=== PATIENT | male | born 1965 | race Caucasian/White ===

== ENCOUNTER 2023-08-07 00:50 | Emergency (ER) | payer BC, SELFPAY ==
[2023-08-07 00:53] VITALS: BP 164/94
[2023-08-07 01:14] VITALS: BMI 31.3
--- NOTE | 2023-08-07 01:16 | ED.GENMED ---
History of Present Illness
<SERGE Slater - Last Filed: 08/07/23 02:32>
General
Chief Complaint: Skin Surface Trauma
Source: patient
Time Seen by Provider: 08/07/23 01:04
Travel History
Have you had any contact with someone who has COVID-19?: No
Do you have any symptoms of coronavirus? Fever > 100 degrees, chills, cough, shortness of breath, sore throat, loss of taste or smell, muscle aches, or headache?: No
History of Present Illness
History of Present Illness:
58 year old male with hx of HTN who presents with laceration to R 3rd digit that occurred 1 hour [employer]. Pt was at work when he cut himself with the cerated blade of a tape gun. Site with bleeding initially. He reports minimal pain to the area. Pt
works with oil and his hands are soiled. He has not taken anything for pain. He is not on any blood thinners. Tetanus not UTD.
Past History
<SERGE Slater - Last Filed: 08/07/23 02:32>
Past History
ED Past Medical History: None
ED Past Surgical History: None
Social History
Tobacco: Non-smoker
Personal: Single
Living: alone
Employment: Employed
Review of Systems
<SERGE Slater - Last Filed: 08/07/23 02:32>
Review of Systems
Allergies reviewed?: Yes
All Other Systems: ROS reviewed and negative except as documented in HPI and ROS
Constitutional: Reports no symptoms
EENT: Reports no symptoms
Respiratory: Reports no symptoms
Cardiac: Reports no symptoms
ABD/GI: Reports no symptoms
: Reports no symptoms
Musculoskeletal: Reports no symptoms
Skin: Reports other (laceration to R 3rd digit)
Neurological: Reports no symptoms
Endocrine: Reports no symptoms
Hematologic/Lymphatic: Reports bleeding
Psychiatric: Reports no symptoms
Phy Exam
<SERGE Slater - Last Filed: 08/07/23 02:32>
General Physical Exam
General Presentation: well appearing and no apparent distress
General age: appears stated age
General Skin: warm and dry
General Habitus: normal
General Mental: alert
Cardiovascular Exam
Cardiovascular Exam: regular rate/rhythm, no edema, no gallop, no murmur and normal peripheral pulses
Pulmonary Exam
Pulmonary Exam: lungs clear, no respiratory distress, no rales, no crackles, no rhonchi, no wheezing and no cough
Neurological Exam
Neurological Exam: alert, oriented x3, no motor deficits and no sensory deficits
Musculoskeletal Exam
Musculoskeletal Exam: full ROM (of R 3rd digit) and neuro vasc intact (R 3rd digit with good capillary refill and neurovascularly intact)
Skin Exam
Skin Exam: laceration (2.5 cm U-shaped laceration to the dorsal aspect of R 3rd digit along the PIP joint, laceration flaps open, no foreign body, site with minimal active bleeding. Hand is dirty.)
Psychiatric Exam
Psychiatric Exam: normal mood/affect
Course
<SERGE Slater - Last Filed: 08/07/23 02:32>
Orders/Labs/Results
Orders:
Orders
08/07/23 01:28
Tetanus/Diphth/Acelpertussis [Adacel] 0.5 ml IM .ONCE ONE
08/07/23 01:35
Cephalexin Monohydrate [Keflex] 500 mg PO NOW STA
Vital Signs
Initial and Last Documented VS:
Initial Vital Signs
Temp Pulse Resp BP Pulse Ox
98.4 F 82 16 164/94 99
08/07/23 00:53 08/07/23 00:53 08/07/23 00:53 08/07/23 00:53 08/07/23 00:53
Last Documented Vital Signs
Temp Pulse Resp BP Pulse Ox
98.4 F 82 16 164/94 99
08/07/23 00:53 08/07/23 00:53 08/07/23 00:53 08/07/23 00:53 08/07/23 00:53
<Azalia Alonso DO - Last Filed: 08/07/23 02:05>
Orders/Labs/Results
Orders:
Orders
08/07/23 01:28
Tetanus/Diphth/Acelpertussis [Adacel] 0.5 ml IM .ONCE ONE
08/07/23 01:35
Cephalexin Monohydrate [Keflex] 500 mg PO NOW STA
Vital Signs
Initial and Last Documented VS:
Initial Vital Signs
Temp Pulse Resp BP Pulse Ox
98.4 F 82 16 164/94 99
08/07/23 00:53 08/07/23 00:53 08/07/23 00:53 08/07/23 00:53 08/07/23 00:53
Last Documented Vital Signs
Temp Pulse Resp BP Pulse Ox
98.4 F 82 16 164/94 99
08/07/23 00:53 08/07/23 00:53 08/07/23 00:53 08/07/23 00:53 08/07/23 00:53
Procedures
<SERGE Slater - Last Filed: 08/07/23 02:32>
Laceration Closure
Right Dorsal Third Finger:
Status of Wound: dirty
Size of Wound in cm: 2.5 (U-shaped)
Description of Wound Edges: ragged
Preparation: cleaned with saline and cleaned with Betadine
Anesthesia: 1% Lidocaine and added Na Bicarb to local
Revision/Debridement: routine- no revision
Wound exploration: explored to base- no FB
Type of Closure: single layer closure
Skin Closure Material: 4-0 nylon
Number of sutures: 10
<SERGE Slater - Last Filed: 08/07/23 02:32>
MDM/Problems Addressed
Differential Diagnosis Includes:
finger laceration with no foreigh body
MDM/Problems Addressed:
58 year old male who presents with laceration to R 3rd digit that occurred 1 hour [employer].
Chronic conditions affecting care: HTN
<SERGE Slater - Last Filed: 08/07/23 02:32>
*Critical Care Note
Total Time (30-74mins, 75-104mins- exclusive of procedures): Not Applicable
<Azalia Alonso DO - Last Filed: 08/07/23 02:05>
*Pulse Oximetry
Patient hypoxic: no
*Critical Care Note
Total Time (30-74mins, 75-104mins- exclusive of procedures): Not Applicable
ED Attending Note
<SERGE Slater - Last Filed: 08/07/23 02:32>
-
Portions of this chart may have been created with voice recognition software.� Occasional wrong word or��sound alike� substitutions may have occurred due to the inherent limitations of voice recognition software.
<Azalia Alonso DO - Last Filed: 08/07/23 02:05>
ED Attending Note
Patient seen and examined by attending physician: Yes
I performed the substantive portion of visit, reviewed & personally made and approve the management plan that is documented in note by myself or MELANY.: Yes
I performed a history and physical exam of patient and discussed management with resident, I reviewed resident's note and agree with documented findings and plan of care.: Yes
ED Attending Note:
This is a 58-year-old, [id number] gentleman who complains of laceration to the dorsal aspect of his right long digit, cutting this on a tape dispenser cutting blade while at work. Injury occurred just prior to arrival.
He complains of a flap type laceration distal right long digit. He denies pain, denies numbness. Minimal bleeding initially which stopped with local pressure.
Unsure as to his last Tdap.
His only past medical history is hypertension.
GENERAL: 58-year-old gentleman appears his stated age, bright and alert, pleasant, appears in no acute distress. Sitting upright on stretcher. Easily communicative.
NECK: Supple, nontender, no adenopathy.
ENT: oral mucosa is moist. No rhinorrhea.
CARDIAC: Regular rate and rhythm. no murmur.
LUNGS: No respiratory distress.
NEUROLOGICAL: Alert and oriented x3, no focal neuro deficits. Gait is martinez and steady.
SKIN: Warm and dry, normal color, no rash.
MUSCULOSKELETAL: No C/C/E. peripheral pulses are full and equal b/l. No palpable tenderness. Right long digit, dorsal mid aspect has a 2.5 cm flap type laceration, subcutaneous in depth. Flap is well-vascularized. There is no tendon involvement.
Full digit range of motion without difficulty nor pain. Distal sensation, strength, capillary refill all intact. There is full visualization of the subcutaneous aspect of this flap laceration. No foreign body identified. No tendon involvement.
PSYCH: Normal and appropriate interaction.
Patient has suffered a flap laceration dorsal mid aspect of the right long digit. Flap is well-vascularized. There is no tendon involvement.
No focal tenderness and full visualization of laceration. No indication for radiologic studies.
Wound will require suture repair.
Will update Tdap.
Will plan for short course of Keflex for infection prevention.
Recommend ibuprofen versus Tylenol as needed for pain.
As injury is work-related recommend follow-up with his work health provider for wound check and suture removal in 7 to 10 days.
08/07/2023 0204 AM
Suture repair by PA student under my direct supervision.
Work restrictions discussed.
Wound care discussed.
Return precautions discussed.
Discharge Plan
Departure
Patient Disposition: Home (Routine Discharge)
Date of Disposition: 08/07/23
Time of Disposition: 02:00
Patient with high blood pressure during this ER visit?: No
Condition: Good
Discharge Problem:
LACERATION RIGHT LONG DIGIT
Instructions: Laceration Repair With Stitches (DC), Tdap vaccine
Prescriptions:
New
cephalexin 500 mg capsule
1,000 mg PO BID 7 Days Qty: 28 0RF
No Action
zolpidem 5 MG tablet
5 mg PO HS Qty: 14 0RF
Referrals:
NONE,* [Family Provider] -
Stand Alone Forms: Return to Work
Activity Restrictions/Additional Instructions:
Follow-up with your occupational health provider next week for wound recheck. Stitches should be removed in 7 to 10 days.
Interventions
Interventions:
*Risk Screen - Suicide Last Done: 08/07/23 00:53
*General Assessment Last Done: 08/07/23 01:17
*Neglect/Abuse Screening Last Done: 08/07/23 00:53
ED- Fall Risk Assessment Last Done: 08/07/23 00:53
*ED COVID-19 Vaccine History Last Done: 08/07/23 00:53
*Nursing Disposition Last Done: 08/07/23 02:15
ED-Skin Assessment Last Done: 08/07/23 01:12
Discharge Date and Time
Discharge Date/Time: 08/07/23 02:16
Print Language: [id number]
[2023-08-07] MEDS: ADACEL 0.5 ML IM (01:36)
[2023-08-07] MEDS: KEFLEX 500 MG PO (01:42)
== END 2023-08-07 02:16 | disposition home or self-care (01) ==
LOC: EMR 00:50
PROVIDERS: EMERGENCY PHYSICIAN Emergency Medicine
DX: S61.212A Laceration without foreign body of right middle finger without damage to nail, initial encounter (principal); W45.8XXA Other foreign body or object entering through skin, initial encounter; Z23 Encounter for immunization; I10 Essential (primary) hypertension
CPT/HCPCS: 99282; 12002; 90471; 90715